=== PATIENT | female | born 1935 | race Caucasian/White ===

== ENCOUNTER 2021-01-30 14:38 | Inpatient (IN) | payer MEDICARE ==
[~2021-01-30] VITALS: Ht 162.6 cm; Wt 56.8 kg
--- NOTE | ~2021-01-30 | EMS ---
[place] [address] EMS Patient Care Report Name: ESTEFANY SELLERS [id number] Admission: 01/30/21 Attend Phys: Discharge: Date of : 35 Report #: [id number] THIS REPORT FOR: //name// Report Transmitted: 01/30/2021 15:14 EMS Care Summary [place], [place]/[facility] Incident [id number] @ 01/30/2021 14:05 Incident Location [address] [place] [address] Patient ESTEFANY SELLERS Female, 85 Years 1935 Patient Address [address] [place] [id number] Patient History None Reported, Patient Allergies No known allergies, Patient Medications None Reported, Chief Complaint LEFT HIP PAIN Disposition Transported No Lights/[place] Dispatch Reason Falls Transported To [facility] Narrative Dispatched to a fall. upon arrival PT was standing with the help of 2 daughters in [address] driveway. Medic Virgil and I took over holding PT up and asked if she were in pain. PT denied pain and wanted to walk, then stating she had left hip pain when trying to walk. Brought stretcher to PT, loaded her on and put her [address] [address] EMS Patient Care Report Name: ESTEFANY SELLERS Room #: REG [facility].#: [id number] Admission: 01/30/21 Attend Phys: Discharge: Date of : 35 Report #: [id number] onto ambulance. Upon assessment no obvious deformities were found. Transported to [facility] ER, brought her into room 10 on a stretcher and team lifted her onto hospital bed putting rails up prior to leaving. Initial Vitals @14:31P: 93,R: 18,BP: 120/87,SpO2: 94, @14:23Pain: 2/10, @14:23GCS: 15, Assessments @14:45MENTAL:Place Oriented,Person Oriented,Event Oriented,Time Oriented,SKIN:HEENT:Head/Face: No Abnormalities,Neck/Airway: No Abnormalities,LUNG SOUNDS:ABDOMEN:PELVIS//GI:EXTREMITIES:Left Leg: Weakness,PULSE:Brachial: 2+ Normal,Femoral: 2+ Normal,Radial: 2+ Normal,Pedal: 2+ Normal,Carotid: 2+ Normal,NEURO:Weakness Left-Sided, Impression Injury of Hip Timeline 14:03,Call Received 14:03,Dispatch Notified 14:05,Dispatched 14:06,En Route 14:12,On Scene 14:12,At Patient 14:23,BP: / M,PULSE: ,RR: R,SPO2: Ox,ETCO2: ,BG: ,PAIN: ,GCS: 15, 14:23,BP: / M,PULSE: ,RR: R,SPO2: Ox,ETCO2: ,BG: ,PAIN: 2,GCS: , 14:25,Depart Scene 14:31,BP: 120/87 M,PULSE: 93,RR: 18 R,SPO2: 94 Ox,ETCO2: ,BG: ,PAIN: ,GCS: , 14:32,At Destination 14:47,Call Closed Disclaimer v1.1 Copyright 2020 [employer] This EMS Care Summary contains data elements from the applicable legal record (which may be displayed differently). It is designed to provide pertinent information for the following purposes: continuity of care, clinical quality, and state data reporting. The complete legal record is available to ED staff and administrators of the receiving hospital in [facility] Patient Tracker. All data is provided "as is."
[2021-01-30 14:40] VITALS: BP 101/69
--- NOTE | 2021-01-30 15:00 | NUR ---
PLEASE SEE TRIAGE NOTE. OTHER THAN ABRASION TO LUE PT HAS NO OUTWARD INJURIES NOTED. PT PEDAL PULSES ARE STRONG, EQUAL AND STEADY. PT CAP REFILL IS LESS THAN 3 SECONDS. NO BRUISING NOTED TO LEFT HIP OR SWELLING.
[2021-01-30 16:16] LABS: ABSOLUTE NEUTROPHILS 9.8 thou/uL (1.4-8.2); BASOPHILS 0.3 % (0.0-2.0); EOSINOPHILS 0.4 % (0.0-3.0); HEMATOCRIT 33.4 % (37.0-47.0); HEMOGLOBIN 10.9 gm/dL (12.0-15.0); LYMPHOCYTES 10.2 % (24.0-44.0); MCH 30.1 pg (26.0-34.0); MCHC 32.5 g/dL (28.0-37.0); MCV 92.7 fL (80.0-100.0); MONOCYTES 4.4 % (1.0-8.0); PLATELET COUNT 284 thou/uL (150-400); POLYS 84.7 % (36.0-66.0); RBC 3.61 mil/uL (4.20-5.00); RDW 14.3 % (10.5-14.5); WBC 11.6 thou/uL (4.0-11.0)
[2021-01-30 16:23] LABS: CALCIUM 8.7 mg/dL (8.5-10.1); CREATININE 0.9 mg/dL (0.6-1.0); POTASSIUM 3.5 mmol/L (3.5-5.1)
[2021-01-30 16:28] LABS: ALBUMIN 3.2 g/dL (3.4-5.0); TOTAL BILIRUBIN 0.2 mg/dL (0.2-1.0); TOTAL PROTEIN 7.3 g/dL (6.4-8.2)
[2021-01-30 17:20] LABS: URINE BILIRUBIN NEGATIVE (Negative); URINE BLOOD 2+ (Negative); URINE CLARITY CLEAR; URINE COLOR YELLOW; URINE GLUCOSE-RANDOM* NEGATIVE (Negative); URINE KETONES NEGATIVE (Negative); URINE LEUKOCYTES-REFLEX NEGATIVE (Negative); URINE NITRITE-REFLEX NEGATIVE (Negative); URINE PROTEIN (DIPSTICK) TRACE (Negative); URINE SPECIFIC GRAVITY >= 1.030 (1.005-1.035); URINE UROBILINOGEN 0.2 E.U./dl (0.2-1.0)
[2021-01-30 17:35] LABS: BACTERIA-REFLEX 1-9 Few /HPF (None Seen); CASTS None Seen /LPF (None Seen); SQUAMOUS 4-10 Moderate /LPF (0-3); URINE RBC 3-10 Few /HPF (NONE SEEN); URINE WBC-REFLEX 0-5 Rare /HPF (0-5)
[2021-01-30 17:36] LABS: CRYSTALS None Seen /LPF (None Seen)
--- NOTE | 2021-01-30 19:12 | NUR ---
REPORT GIVEN TO ELOISA MARTINEZ AT THIS TIME
[2021-01-30 19:32] LABS: FOLIC ACID 28.3 ng/mL (8.6-58.9)
[2021-01-30 19:36] VITALS: BP 119/97
[2021-01-30 20:23] VITALS: BP 119/97
[2021-01-30 20:45] VITALS: BP 137/72
[2021-01-30 22:57] VITALS: BP 155/83
[2021-01-31 04:32] VITALS: BP 149/84
--- NOTE | 2021-01-31 05:57 | NUR ---
RECEIVED CARE OF THIS PATIENT AT 2100 FROM ED VIA CART ACCOMPANIED BY ED PERSONEL. PATIENT ALERT AND ORIENTED X4. REMAINS IN BED D/T FX L HIP. C/O PAIN, MED GIVEN. NPO FOR SURGERY TODAY. SLEPT LITTLE THIS SHIFT.
--- NOTE | 2021-01-31 07:18 | EKG ---
[address] [address] ELECTROCARDIOGRAM REPORT Name: ESTEFANY SELLERS Room #: 437-P ADM IN M.R.#: [id number] Admission: 01/30/21 Attend Phys: Ricci Badillo MD Discharge: Date of : 35 Report #: [id number] [facility] ED Test Date: 2021-01-30 Test Time: 15:48:28 Pat Name: ESTEFANY SELLERS Department: Room: [facility] Gender: F Manager Of Planning: CAM : 1935 Requested By: Vikas Mensah Order Number: [id number] MD: Eduardo Chapman Measurements Intervals [place] Rate: 83 P: 66 [place]: 169 QRS: -37 QRSD: 107 T: -28 QT: 388 QTc: 456 Interpretive Statements Sinus rhythm Left axis deviation Nonspecific T abnormalities, diffuse leads No previous ECG available for comparison Electronically Signed On 01-31-2021 7:18:43 CDT by Eduardo Chapman [email or web address] <ELECTRONICALLY SIGNED> By: Eduardo Chapman MD, [facility] 01/31/21 0718 [id number] [id number] Eduardo Chapman MD, FACC /EPI
[2021-01-31 07:26] LABS: BASOPHILS 0.5 % (0.0-2.0); EOSINOPHILS 1.1 % (0.0-3.0); HEMATOCRIT 32.3 % (37.0-47.0); HEMOGLOBIN 10.4 gm/dL (12.0-15.0); LYMPHOCYTES 22.2 % (24.0-44.0); MCHC 32.2 g/dL (28.0-37.0); MCV 93.2 fL (80.0-100.0); MONOCYTES 6.8 % (1.0-8.0); PLATELET COUNT 247 thou/uL (150-400); POLYS 69.4 % (36.0-66.0); RBC 3.46 mil/uL (4.20-5.00); RDW 14.5 % (10.5-14.5); WBC 7.1 thou/uL (4.0-11.0)
[2021-01-31 07:33] LABS: ANION GAP < 0 mmol/L (7-16); BUN 15 mg/dL (7-18); CALCIUM 8.4 mg/dL (8.5-10.1); CHLORIDE 107 mmol/L (98-107); CO2 34 mmol/L (21-32); CREATININE 0.5 mg/dL (0.6-1.0); GLUCOSE 92 mg/dL (74-106); POTASSIUM 4.1 mmol/L (3.5-5.1); SODIUM 138 mmol/L (136-145)
[2021-01-31 08:06] VITALS: BP 153/94
--- NOTE | 2021-01-31 13:43 | NUR ---
INITIAL ASSESSMENT: CORWIN reviewed chart and spoke with nursing and attending physician. Pt was admitted after a fall getting into her car. Pt sustained left hip fx. Pt is scheduled to have surgery this afternoon. CORWIN met with pt at bedside. Introduced role of SW. Pt is alert/orientated x 4. Pt reports she lives at home alone. Prior to admission, pt was independent with ADLs. No use of DME. Pt walks about two miles every day. No hx of HH services or post-acute placement. Pt's PCP is Dr. Teodoro Hassan. PT/OT to evaluate pt tomorrow after surgery for recommendations for discharge. SW discussed post-acute placement v. home with HH. Pt states she will consider SNF if needed, as she is worried about going home right away. Pt has family available to help her out if needed. Pt lives at [address] [place] [address]. Pt may consider [facility] or [facility] SNF. PT/OT to evaluate pt tomorrow. SW to provide pt with in-network SNF list for review. Will need insurance authorization for SNF placement. CORWIN is following to assist as needed with discharge planning.
[2021-01-31 16:12] VITALS: BP 157/81
--- NOTE | 2021-01-31 16:14 | NUR ---
PT PICKED UP FOR SURGERY
[2021-01-31 21:34] LABS: HEMATOCRIT 32.4 % (37.0-47.0); HEMOGLOBIN 10.6 gm/dL (12.0-15.0); MCH 30.4 pg (26.0-34.0); MCHC 32.7 g/dL (28.0-37.0); MCV 93.2 fL (80.0-100.0); RBC 3.48 mil/uL (4.20-5.00); RDW 14.4 % (10.5-14.5); WBC 11.1 thou/uL (4.0-11.0)
--- NOTE | 2021-02-01 03:00 | NUR ---
PT IS A/O X4 AND IS CURRENTLY ON BEDREST UNTIL PT CAN EVALUATE IN THE AM. REMAINS ON 2 LITER O2 NC. MS NO TELEMETRY. NO BM. MOORE IN PLACE DRAINING APPROPRIATELY. DRSG TO LEFT HIP IS C/D/I. NO DRAINAGE. ICE PACK IN PLACE. PT C/O PAIN THIS AM. PRN PAIN MEDICATION GIVEN DIRECTED. PT IS PLEASANT AND COOPERATIVE. FALL PRECAUTIONS IN PLACE, CALL LIGHT IS WITHIN REACH
[2021-02-01 04:22] VITALS: BP 108/55
[2021-02-01 05:36] LABS: HEMATOCRIT 28.8 % (37.0-47.0); HEMOGLOBIN 9.4 gm/dL (12.0-15.0); MCH 30.3 pg (26.0-34.0); MCHC 32.5 g/dL (28.0-37.0); MCV 93.1 fL (80.0-100.0); RBC 3.09 mil/uL (4.20-5.00); RDW 14.1 % (10.5-14.5); WBC 7.3 thou/uL (4.0-11.0)
[2021-02-01 07:43] VITALS: BP 119/67
--- NOTE | 2021-02-01 11:09 | NUR ---
Assumed care of pt at 0700. Pt a&ox4. Pain controlled with prn pain medications. Dresssing c/d/i. Up to the chair with physical therapy. Calero catheter in place. Call light within reach. Fall precautions in place. Will continue to monitor.
--- NOTE | 2021-02-01 12:10 | NUR ---
CORWIN reviewed chart and spoke with nursing and attending physician. Pt is POD #1 left VALENCIA. PT/OT ordered to evaluate pt today. Recommendation made for pt to discharge to post-acute care. CORWIN met with pt at bedside to discuss post-acute placement. In-network SNF list provided. Pt requests referral to be sent to [facility] due to location. [facility] does not accept pt's insurance. SW explained referral process and need for insurance auth. Pt verbalized understanding. CORWIN Faxed referral to [facility]. Notified Stephanie in admissions of new referral. Philip to visit with pt later today. CORWIN is following to assist as needed with discharge planning.
[2021-02-01 19:36] VITALS: BP 119/72
--- NOTE | 2021-02-02 03:57 | NUR ---
AQUACEL DRSG TO LEFT HIP,LOOKING C/D/I. PT IS PLEASANT AND COOPEARTIVE, APPEARS TO BE IN NO DITRESS.CONTINUING WITH PAIN MGT. CONCERNED ABOUT D/C [PLANNING.DENIES ANY FURTHER NEEDS.
[2021-02-02 04:05] VITALS: BP 139/70
[2021-02-02 07:32] VITALS: BP 125/70
[2021-02-02 09:40] LABS: HEMOGLOBIN 9.6 gm/dL (12.0-15.0); MCH 30.7 pg (26.0-34.0); MCHC 33.2 g/dL (28.0-37.0); MCV 92.4 fL (80.0-100.0); RBC 3.14 mil/uL (4.20-5.00); RDW 14.3 % (10.5-14.5); WBC 9.6 thou/uL (4.0-11.0)
--- NOTE | 2021-02-02 12:14 | NUR ---
CORWIN reviewed chart and spoke [facility] nursing and attending physician. Pt is POD #2 left VALENCIA. Pt is progressing towards goals for discharge. CORWIN faxed clinical/therapy updates to [facility] for review. CORWIN confirmed that [facility] is able to accept pt pending insurance authorization. CORWIN met with pt at bedside to provide update. Pt is aware and in agreement with discharge plan. CORWIN is following to assist as needed with discharge planning.
[2021-02-02 15:27] VITALS: BP 125/60
--- NOTE | 2021-02-02 16:23 | NUR ---
PT ALERT AND ORIENTED TIMES FOUR. VSS. PT C/O PAIN PRN PAIN MEDICATIONS GIVEN WITH GOOD RELEIF. PT TOLERATES MEDS AND MEALS. PT WORKED WELL WITH PT/OT. PT SLOWLY [facility].
[2021-02-02 20:52] VITALS: BP 116/61
--- NOTE | 2021-02-03 06:33 | NUR ---
ASSUMED PT CARE APPROX 0400, NO REPORT GIVEN. PT SLEEPING UPON ASSUMPTION OF CARE. PT OBSERVED WITHOUT INTERRUPTION OR OBSERVATION OF PAIN OR SOB WHILE ON ROOM AIR. FREQUENT MONITORING WILL CONTINUE. PT NOTIFIED STAFF WITH COMPLAINT OF ABDOMINAL PRESSURE DISCOMFORT. BLADDER NOTED TO BE DISTENDED, CATHETER IN PLACE WITH SMALL AMOUNT OF URINE OBSERVED. PT EXPRESSING THAT STATLOCK POSITION CHANGED BY PREVIOUS NURSE. REMOVED 5ML FROM BALLOON, PT REPORTING SOME RELIEF, STATLOCK REPLACED ON INTERIOR LEFT THIGH WITH SLACK NOTED AFTER CATHETER ADVANCED LESS THAN 3INCHES, 5ML RETURNED TO BALLOON- PT REPORTS COMPLETE ABDOMINAL RELIEF, CONSTANT FLOW OF URINE OBSERVED. PT NOTIFIED STAFF OF LEFT HIP PAIN, EXACERBATED WITH MOVEMENT AND ACTIVITY. PT RECEIVING PRN OXYCODONE Q4HR WITH PRN IV MORPHINE Q2HR/Q4HR AVAILABLE. PT TOLERATING PO INTAKE OF FLUIDS AND REGULAR DIET WITHOUT ISSUE. PT WITHOUT NAUSEA OR EMESIS. PT RESTING IN BED FOR REMAINDER OF SHIFT, ENCOURAGED PT TO NOTIFY STAFF FOR ALL NEEDS, CALL LIGHT WITHIN REACH, BED ALARM ON, BED LOCKED IN LOWEST POSITION, ROOM REMAINS NEAR NURSES STATION, FREQUENT MONITORING WILL CONTINUE.
[2021-02-03 07:25] VITALS: BP 117/62
--- NOTE | 2021-02-03 11:26 | NUR ---
ASSUMED PT CARE THIS AM. PT IS ALERT & ORIENTED X4. PT HAS NO IV. PT HAS MOORE CATH IN PLACE, DRESSING ON L HIP, BILATERAL [employer] KNEE HIGH. PT RATED PAIN 5/10 ON L HIP. PT HAS ABDUCTOR PILLOW WHILE IN BED. NO C/O OF NAUSEA AND VOMITING THIS AM. PT TOLERATED DIET AND MEDICATION WELL. PT ON THE BED, BED ON THE LOWEST POSITION, SIDE RAILS UP, CALL LIGHT WITHIN REACH. WILL CONTINUE TO MONITOR PT. FOLLOW POC.
[2021-02-03 15:37] VITALS: BP 135/77
[2021-02-03 20:45] VITALS: BP 128/75
[2021-02-04 08:24] VITALS: BP 110/61
--- NOTE | 2021-02-04 10:57 | NUR ---
ASSUMED PT CARE THIS AM. PT IS ALERT & ORIENTED X4. PT HAS NO IV SITE AND DR IS AWARE. PT HAS ABDUCTOR PILLOW WHILE IN THE BED. PT HAS BILATERAL [employer] KNEE HIGH AND SCD. NIGHT NURSE REMOVED MOORE AND PT ALREADY VOIDED AFTER REMOVING MOORE WITHOUT DIFFICULTIES. PT C/O OF PAIN ON L HIP AND GIVEN PAIN MEDICATION PER PT REQUEST. PT TOLERATED DIET AND MEDICATIN WELL. NO C/O OF NAUSEA AND VOMITING THIS AM. WILL CONTINUE TO MONITOR PT. FOLLOW POC.
[2021-02-04 16:58] VITALS: BP 120/74
[2021-02-04 20:00] VITALS: BP 128/69
--- NOTE | 2021-02-05 03:42 | NUR ---
PT IS A/O X4 AND IS UP WITH ASSISTANCE TO THE BSC. ROOM AIR. VSS. AFEBRILE. C/O LEFT HIP PAIN. PRN PAIN MEDICATION. DRSG TO HIP HAS SCANT YELLOW DRAINAGE. C/O INSOMNIA. BOTH PRN SLEEP MEDICATIONS GIVEN DIRECTED. FALL PRECAUTIONS IN PLACE, CALL LIGHT IS WITHIN REACH. WILL CONTINUE TO MONITOR.
[2021-02-05 04:12] VITALS: BP 112/68
[2021-02-05 07:30] VITALS: BP 122/67
--- NOTE | 2021-02-05 10:38 | NUR ---
A/O X 3. ROOM AIR, ONE ASSIST WITH WALKER. LAST BM 02/05. SHE WAS ASSIST TO COMMODE TO HAVE A BM, UPON CHECKING ON HER SHE WAS UNRESPONSIVE, NURSE TRIED WAKING HER UP AND STRENUM RUBBED HER AND SHE WOKE UP. SHE PROBABLY STRAINED DURING BM AND VASOVAGALED HER BM WAS LOOSE, ONCE ASKED ABOUT HER STRAINING SHE SAID THAT SHE WAS PUSHING HARD. VITAL SIGNS STABLE AFTER. DR. PAGAN CALLED AND NOTIFIED OF THIS. D/C TODAY TO IGNITE IF STABLE.
--- NOTE | 2021-02-05 11:20 | NUR ---
DISCHARGE NOTE: CORWIN reviewed chart and spoke with nursing and hospitalist. Pt is medically stable for discharge to [facility] today. CORWIN faxed clincal/therapy updates from the weekend to [facility] for review. CORWIN was notified by Arlette in admissions that the facility did obtain insurance auth yesterday. Per Arlette, nursing told Arlette that pt was not ready for discharge yesterday. CORWIN notified attending physician (surgery) of insurance auth. Awaiting discharge ppwk at this time. Wheelchair van transportation scheduled for 1400 per facility's arrangements. CORWIN met with pt at bedside to provide update. Pt is aware and in agreement with plan. Pt states she will update her family. Chart copy requested. Nursing provided with number to call report. CORWIN is following to finalize discharge plan.
== END 2021-02-05 14:35 | DRG 522 ==
LOC: ER 14:38 → 4S 17:27 → EROBS 17:27 → 4S 20:45
PROVIDERS: Emergency Medicine; Nurse Practitioner; Orthopaedic Surgery; ADMIT Surgery; ATTEND Surgery
PROC: 0SRS01Z Replacement of Left Hip Joint, Femoral Surface with Metal Synthetic Substitute, Open Approach (ICD-10-PCS; principal; 2021-01-31)
DX: S72.012A Unspecified intracapsular fracture of left femur, initial encounter for closed fracture (principal); E44.1 Mild protein-calorie malnutrition; D72.829 Elevated white blood cell count, unspecified; Z66 Do not resuscitate; Z20.822 Contact with and (suspected) exposure to COVID-19; R53.81 Other malaise; Z60.2 Problems related to living alone; W18.39XA Other fall on same level, initial encounter; Y93.89 Activity, other specified; Z68.21 Body mass index [BMI] 21.0-21.9, adult; Y92.89 Other specified places as the place of occurrence of the external cause; Y99.8 Other external cause status; Z23 Encounter for immunization
CPT/HCPCS: 10195; 50010; 50101; 50414; 51412; 52256; 53000; 56525; 57095; 57103; 58605; 62110; 62900; 70005